=== PATIENT | female | born 1955 | race African-American/Black ===

== ENCOUNTER 2018-11-11 15:46 | Emergency (ER) | payer OTHER ==
--- NOTE | 2018-11-11 15:54 | PDOC ---
Rapid Medical Evaluation Time Seen by Provider: 11/11/18 15:48 Medical Evaluation: Allergies Allergy/AdvReac Type Severity Reaction Status Date / Time No Known Allergies Allergy Verified 05/24/15 13:27 11/11/18 15:48 I performed a brief in-person evaluation of this patient. Chief complaint: Slipped and fell at work. Pain on right side of body. No head strike. Pertinent physical exam findings: Some tenderness over right shoulder/pain with elevation of right arm. Tenderness of right hip, although able to bear full weight. I have ordered the following: Right shoulder and right hip xrays. BP 176/90. Hx HTN, on meds. Patient will proceed to the ED for further evaluation. Discharge Disposition - Diagnosis Fall - Referrals - Patient Instructions - Post Discharge Activity
[2018-11-11 15:58] VITALS: BP 176/90; PULSE 92; TEMP 98.2; BMI 32.5
--- NOTE | 2018-11-11 16:43 | PDOC ---
History of Present Illness - General Chief Complaint: Injury Stated Complaint: SLIP AND FALL Time Seen by Provider: 11/11/18 15:48 - History of Present Illness Initial Comments: 11/11/18 16:31 63-year-old female with a past medical history significant for hypertension and dyslipidemia presents for evaluation of right-sided pain after trip and fall at work today. She planes of right shoulder and right hip pain. She is fully ambulatory in the emergency room 11/11/18 16:32 She did not hit her head, there was no loss of consciousness post injury nausea vomiting or visual changes. Past History - Past Medical History Allergies/Adverse Reactions: Allergies Allergy/AdvReac Type Severity Reaction Status Date / Time No Known Allergies Allergy Verified 11/11/18 15:49 Home Medications: Ambulatory Orders Atorvastatin Ca [Lipitor] 10 mg PO HS 01/25/14 Losartan/Hydrochlorothiazide [Losartan-Hctz 100-25 mg Tab] 1 each PO DAILY 01/25 COPD: No HTN: Yes Hypercholesterolemia: Yes - Suicide/Smoking/Psychosocial Hx Smoking History: Never smoked Review of Systems - Review of Systems Musculoskeletal: Yes: Joint Pain *Physical Exam - Vital Signs Last Vital Signs Temp Pulse Resp BP Pulse Ox 98.2 F 92 H 18 176/90 H 99 11/11/18 15:50 11/11/18 15:50 11/11/18 15:50 11/11/18 15:50 11/11/18 15:50 - Physical Exam Comments: 11/11/18 16:32 HEAD: NC/AT EYES: Conjuntiva clear NOSE: No d/c NECK: Supple without adenopathy CARDIAC: S1 S2 LUNGS: CTA Full and Equal breath sounds ABDOMEN: Soft NT ND MS: Full ROM in all joints without edema NEUROLOGIC: No gross sensory or motor deficits, NVID SKIN: Normal color and temperature no lesions or rashes Right shoulder skin color and temperature are normal. There is no tenderness. This full range of motion in all planes. 5 out of 5 strength. No gross sensorimotor deficits Right hip skin color and temperature are normal. There is full range of motion. Patient ambulates without antalgia no gross sensorimotor deficits Moderate Sedation - Procedure Monitoring Vital Signs: Procedure Monitoring Vital Signs Temperature 98.2 F 11/11/18 15:50 Pulse Rate 92 H 11/11/18 15:50 Respiratory Rate 18 11/11/18 15:50 Blood Pressure 176/90 H 02/18/19 15:50 O2 Sat by Pulse Oximetry (%) 99 11/11/18 15:50 *DC/Admit/Observation/Transfer Diagnosis at time of Disposition: Fall, Contusion of shoulder, right, Contusion of right hip - Referrals Referrals: Kurtis Kelley MD [Primary Care Provider] - Houston Millard DO [Staff Physician] - - Patient Instructions Printed Discharge Instructions: Contusion Additional Instructions: He may take Tylenol as directed fear pain. Return to the emergency room should symptoms worsen or go unresolved and follow-up with orthopedic surgery in 1-2 days for further evaluation and treatment options. - Post Discharge Activity
== END 2018-11-11 16:48 | disposition home or self-care (01) ==
LOC: JER 15:46 → JERFT 15:46
DX: S40.011A Contusion of right shoulder, initial encounter (principal); S70.01XA Contusion of right hip, initial encounter; W01.0XXA Fall on same level from slipping, tripping and stumbling without subsequent striking against object, initial encounter; Y93.89 Activity, other specified; Y92.128 Other place in nursing home as the place of occurrence of the external cause; Y99.0 Civilian activity done for income or pay; I10 Essential (primary) hypertension; E78.00 Pure hypercholesterolemia, unspecified
CPT/HCPCS: 99281-25